=== PATIENT | male | born 1955 | race Caucasian/White ===

== ENCOUNTER 2022-02-02 11:26 | Outpatient (CLI) | payer MEDICARE, BC, SELFPAY ==
--- NOTE | 2022-02-02 12:07 | XR_ITS ---
WS: [id number] Lumbar spine with flexion, extension, and neutral lateral, 02/02/2022 Clinical Data: DORSALGIA Comparison: None. Findings: No compression fractures or subluxation is seen. There is degenerative disc narrowing at L4-L5 and L5 -S1. There are anterior osteophytes from L1 through L5.. On flexion and extension there is limitation of motion but no subluxation. XR/XR lumbar spine f/e only [id number] Impression: 1. Degenerative disc narrowing at L4-L5 and L5-S1. 2. Osteoarthritis L1-L5. 3. Limitation of motion but no subluxation on flexion and extension.
== END 2022-02-02 11:27 | disposition home or self-care (01) ==
LOC: RAD 11:52
PROVIDERS: PCP Internal Medicine; Visit Provider Neurological Surgery
DX: M47.816 Spondylosis without myelopathy or radiculopathy, lumbar region
CPT/HCPCS: 72120